=== PATIENT | male | born 1960 | race Caucasian/White ===

== ENCOUNTER 2025-07-25 06:00 | Day surgery (SDC) | payer MEDICARE, OTHER ==
[~2025-07-25 06:00] MED LIST: Sodium Chloride 0.9% 10 ML Syringe FLUSH PRN; Sodium Chloride 0.9% 10 ML Syringe FLUSH SCH
[2025-07-25] MEDS ORDERED: Propofol 200 MG/20 ML SDV ONE ×2 (06:17→07:11)
[2025-07-25] MEDS: Lactated Ringers 1,000 ML IV SCH (06:30)
== END 2025-07-25 08:00 | disposition home or self-care (01) ==
LOC: JD.SDS 06:00
PROVIDERS: ATTEND Orthopaedic Surgery
DX: M65.341 Trigger finger, right ring finger (principal); E03.9 Hypothyroidism, unspecified; K21.9 Gastro-esophageal reflux disease without esophagitis; J45.30 Mild persistent asthma, uncomplicated; Z79.82 Long term (current) use of aspirin; Z79.899 Other long term (current) drug therapy; Z79.890 Hormone replacement therapy; Z91.030 Bee allergy status
CPT/HCPCS: 26055; J0665; J2003; J2704; J7120; 01810